=== PATIENT | female | born 1990 | race Caucasian/White ===

== ENCOUNTER 2021-02-20 12:23 | Emergency (ER) | payer OTHER ==
[~2021-02-20] VITALS: Ht 157.5 cm; Wt 61.2 kg
[2021-02-20 12:37] VITALS: BP 113/81
[2021-02-20] MEDS ORDERED: KETOROLAC 15 MG/ML VIAL IM ONE (13:00)
[2021-02-20] MEDS ORDERED: KETOROLAC 30 MG/ML VIAL ONE (13:45)
[2021-02-20 14:51] LABS: BASOPHILS % (AUTO) 0.4 % (0.0-2.0); EOSINOPHILS # (AUTO) 0.1 K/uL (0-0.4); HEMATOCRIT 38.8 % (36-48); HEMOGLOBIN 13.2 g/dL (12.0-16.0); LYMPHOCYTES # (AUTO) 1.5 K/uL (2.5-16.5); LYMPHOCYTES % (AUTO) 25.6 % (20.5-51.1); MEAN CORPUSCULAR HEMOGLOBIN 30 pg (27-31); MEAN CORPUSCULAR HGB CONC 34 g/dL (33-37); MEAN CORPUSCULAR VOLUME 87.6 fL (80-94); MONOCYTES # (AUTO) 0.4 K/uL (0.8-1.0); MONOCYTES % (AUTO) 6.8 % (1.7-9.3); NEUTROPHILS # (AUTO) 3.9 K/uL (1.8-7.7); NEUTROPHILS % (AUTO) 66.2 % (42.2-75.2); PLATELET COUNT (AUTO) 279 K/uL (140-450); RED BLOOD CELL COUNT(AUTO) 4.43 MIL/uL (4.20-5.40); RED CELL DISTRIBUTION WIDTH 12.9 % (11.6-13.7); WHITE BLOOD COUNT (AUTO) 5.8 K/uL (4.8-10.8)
[2021-02-20 15:10] LABS: ALBUMIN 3.5 g/dL (3.4-5.0); CARBON DIOXIDE 27.9 mmol/L (21-32); CREATININE 0.6 mg/dL (0.6-1.3); POTASSIUM 3.9 mmol/L (3.5-5.1); TOTAL BILIRUBIN 0.3 mg/dL (0.0-1.0)
[2021-02-20] MEDS ORDERED: METH-1681 PO (15:19)
[2021-02-20] MEDS ORDERED: NAPR-54 PO (15:19)
--- NOTE | 2021-02-20 15:48 | NUR ---
Patient discharged with v/s stable. Written and verbal after care instructions ABOUT MIGRAINE HEADACHE given and explained. Patient alert, oriented and verbalized understanding of instructions. Ambulatory with steady gait. All questions addressed prior to discharge. ID band removed. Patient advised to follow up with PMD. Rx of NAPROXEN AND ROBAXIN given. Patient educated on indication of medication including possible reaction and side effects. Opportunity to ask questions provided and answered.
[2021-02-21] MEDS ORDERED: METO-485 PO (21:40)
== END 2021-02-20 15:28 | disposition home or self-care (01) ==
LOC: MED 12:23
DX: R51.9 Headache, unspecified (principal); R42 Dizziness and giddiness
CPT/HCPCS: 36415; 80053; 81002; 81025; 85025; 96372; 99283; J1885

== ENCOUNTER 2021-02-21 20:21 | Emergency (ER) | payer OTHER ==
[~2021-02-21] VITALS: Ht 163.8 cm; Wt 81.8 kg
[~2021-02-21 20:21] MED LIST: METH-1681 PO; NAPR-54 PO
[2021-02-21 21:14] VITALS: BP 113/68
--- NOTE | 2021-02-21 21:19 | NUR ---
PT STATED SHE WILL WAIT IN HER CAR.
[2021-02-21] MEDS ORDERED: METO-485 PO (21:40)
[2021-02-21] MEDS ORDERED: METOCLOPRAMIDE 10 MG TAB PO ONE (21:45)
--- NOTE | 2021-02-21 22:30 | NUR ---
CALLED PT IN LOBBY AND OUTSIDE FOR MEDICATION, NO ANSWER.
--- NOTE | 2021-02-21 22:48 | NUR ---
PT CLEARED FOR DISCHARGE AND UNABLE TO BE FOUND. PT LEFT WITHOUT INSTRUCTIONS.
--- NOTE | 2021-02-21 22:48 | NUR ---
CALLED PT'S CELL NO ANSWER.
== END 2021-02-21 22:48 | disposition home or self-care (01) ==
LOC: MED 20:21
DX: G43.909 Migraine, unspecified, not intractable, without status migrainosus (principal); R11.2 Nausea with vomiting, unspecified; Z88.0 Allergy status to penicillin; Z79.899 Other long term (current) drug therapy
CPT/HCPCS: 99283

== ENCOUNTER 2022-10-05 17:34 | Emergency (ER) | payer BC, OTHER ==
[~2022-10-05] VITALS: Ht 162.6 cm; Wt 81.2 kg
[~2022-10-05 17:34] MED LIST changes: +METO-485 PO
[2022-10-05 17:40] VITALS: BP 129/87; PULSE 88; RESP 18; TEMP 98.1; O2SAT 97
[2022-10-05 18:37] LABS: BASOPHILS % (AUTO) 0.4 % (0.0-2.0); EOSINOPHILS # (AUTO) 0.1 K/uL (0-0.4); EOSINOPHILS % (AUTO) 1.3 % (0.0-4.0); HEMATOCRIT 37.9 % (36-48); HEMOGLOBIN 12.5 g/dL (12.0-16.0); LYMPHOCYTES # (AUTO) 2.4 K/uL (2.5-16.5); LYMPHOCYTES % (AUTO) 24.5 % (20.5-51.1); MEAN CORPUSCULAR HEMOGLOBIN 28 pg (27-31); MEAN CORPUSCULAR HGB CONC 33 g/dL (33-37); MEAN CORPUSCULAR VOLUME 84.8 fL (80-94); MONOCYTES # (AUTO) 0.6 K/uL (0.8-1.0); MONOCYTES % (AUTO) 6.1 % (1.7-9.3); NEUTROPHILS # (AUTO) 6.5 K/uL (1.8-7.7); NEUTROPHILS % (AUTO) 67.7 % (42.2-75.2); PLATELET COUNT (AUTO) 271 K/uL (140-450); RED BLOOD CELL COUNT(AUTO) 4.47 MIL/uL (4.20-5.40); RED CELL DISTRIBUTION WIDTH 14.7 % (11.6-13.7); WHITE BLOOD COUNT (AUTO) 9.6 K/uL (4.8-10.8)
[2022-10-05 18:49] LABS: INR 1.02 (0.8-1.2); PARTIAL THROMBOPLASTIN TIME 28.8 secs (22-35.6); PROTHROMBIN TIME 10.7 secs (10.8-13.4)
[2022-10-05 19:09] LABS: ALBUMIN 3.7 g/dL (3.4-5.0); ANION GAP 12.3 (8-16); CALCIUM 8.7 mg/dL (8.5-10.1); CARBON DIOXIDE 25.2 mmol/L (21-32); CREATININE 0.8 mg/dL (0.6-1.3); POTASSIUM 3.5 mmol/L (3.5-5.1); TOTAL BILIRUBIN 0.2 mg/dL (0.0-1.0); TOTAL PROTEIN, SERUM 7.8 g/dL (6.4-8.2)
[2022-10-05 19:48] VITALS: BP 133/84; PULSE 81; RESP 16; TEMP 97.2; O2SAT 99
== END 2022-10-05 20:20 | disposition home or self-care (01) ==
LOC: MED 17:34
DX: R07.9 Chest pain, unspecified (principal); R06.02 Shortness of breath; R53.83 Other fatigue; Z88.0 Allergy status to penicillin; Z79.899 Other long term (current) drug therapy
CPT/HCPCS: 36415; 71045; 80053; 81025; 83880; 84484; 85025; 85610; 85730; 93005; 99285